=== PATIENT | female | born 1985 | race Two or more races ===

== ENCOUNTER 2017-01-04 15:39 | Emergency (ER) | payer SELFPAY ==
[2017-01-04 15:11] LABS: URINE SOURCE CLEAN CATCH
[2017-01-04 15:15] LABS: URINE APPEARANCE CLEAR; URINE BILIRUBIN NEG (NEG); URINE BLOOD NEG (NEG); URINE COLOR YELLOW; URINE GLUCOSE NEG (NEG); URINE KETONE NEG (NEG); URINE LEUKOCYTE ESTERASE NEG (NEG); URINE NITRATE NEG (NEG); URINE PROTEIN NEG (NEG); URINE SPECIFIC GRAVITY 1.018 (1.003-1.035); URINE UROBILINOGEN 0.2 MG/DL (NEG)
[2017-01-04 15:22] LABS: CULTURE INDICATED? NO
[2017-01-07 13:00] LABS: CHLAMYDIA TRACH Not Detected (Not Detected); N GONOR Not Detected (Not Detected)
== END 2017-01-04 16:19 | disposition home or self-care (01) ==
LOC: CFTX 15:39
PROVIDERS: Physician Assistant
DX: R10.9 Unspecified abdominal pain (principal)
CPT/HCPCS: 81003; 87491; 87591; 87808; 87905; 99284